=== PATIENT | female | born 1935 | race Caucasian/White ===

== ENCOUNTER 2017-11-16 18:13 | Emergency (ER) | payer MEDICARE, OTHER ==
[~2017-11-16] VITALS: Ht 160 cm; Wt 68.0 kg
--- NOTE | 2017-11-16 18:15 | NUR ---
BIB DTR FROM HOME DT CHEST PAIN, SHARP, 8/10, NON RADIATING SINCE YESTERDAY. PATIENT NOT IN DISTRESS. SKIN IS WARM TO TOUCH AND NON DIAPHORETIC. PATIENT IS AFEBRILE. VSS
--- NOTE | 2017-11-16 18:36 | NUR ---
IV ACCESSED ON RAC 20.
[2017-11-16 19:16] LABS: BASOPHILS # (AUTO) 0.1 /CMM (0.0-0.2); BASOPHILS % (AUTO) 0.6 % (0.0-2.0); HEMATOCRIT 39 % (33-45); HEMOGLOBIN 13.3 g/dL (11.5-14.8); LYMPHOCYTES # (AUTO) 2.6 /CMM (0.8-4.8); LYMPHOCYTES % (AUTO) 29.6 % (20.0-44.0); MEAN CORPUSCULAR HGB CONC 34 g/dl (31.0-36.0); MEAN CORPUSCULAR VOLUME 88 fL (82-100); MONOCYTES # (AUTO) 0.8 /CMM (0.1-1.30); MONOCYTES % (AUTO) 9.5 % (2.0-12.0); NEUTROPHILS % (AUTO) 58.3 % (43.0-81.0); PLATELET COUNT (AUTO) 301 /CMM (150-450); RDW COEFFICIENT OF VARIATION 12.2 (11.5-15.0); RED BLOOD CELL COUNT(AUTO) 4.43 MIL/uL (4.0-5.2); WHITE BLOOD COUNT (AUTO) 8.7 K/uL (4.3-11.0)
[2017-11-16] MEDS ORDERED: IOHEXOL-350 100 ML VIAL IV ONE (19:26)
[2017-11-16] MEDS ORDERED: CT SWABBABLE VALVE TRANS SET 1 EA INFUS.SET MC ONE (19:26)
[2017-11-16] MEDS ORDERED: IV NS 0.9% 250 ML IV ONE (19:26)
[2017-11-16 19:27] LABS: CALCIUM, SERUM 8.9 mg/dL (8.5-10.1); CARBON DIOXIDE 29 mmol/L (21-32); CHLORIDE 104 mmol/L (98-107); CREATININE 1.3 mg/dL (0.6-1.3); GLUCOSE 120 mg/dL (74-106); POTASSIUM 2.9 mmol/L (3.5-5.1); SODIUM SERUM 138 mmol/L (136-145); UREA NITROGEN, BLOOD 26 mg/dL (7-18)
[2017-11-16 19:28] LABS: INR 0.95 (0.85-1.15)
[2017-11-16 19:35] LABS: TROPONIN I < 0.017 ng/mL (0.00-0.056)
[2017-11-16 19:41] LABS: D-DIMER 0.39 mg/L(FEU (0.17-0.50)
[2017-11-16] MEDS ORDERED: IV NS 0.9% 500 ML BAG IV ONE (20:30)
[2017-11-16] MEDS ORDERED: POTASSIUM CHLORIDE 20 MEQ TAB.PRT.SR PO ONE ×2 (20:30→20:34)
[2017-11-16] MEDS ORDERED: POTASSIUM CHLORIDE 20 MEQ POWDER PACKET ONE (20:34)
--- NOTE | 2017-11-16 20:50 | NUR ---
CALLED PSYCHIATRIC FOR PANEL CALL AND DR GONZALES WAS PAGED.
--- NOTE | 2017-11-16 21:23 | NUR ---
PT IS ASSIGNED TO TELE RM#: [id number], DX: CHEST PAIN, AND ACCEPTING MD: DR GONZALES
[2017-11-16] MEDS ORDERED: ASPIRIN 81 MG TAB.CHEW ONE (21:29)
[2017-11-16] MEDS ORDERED: NITROGLYCERIN PACKET 1 GM PACKET ONE (21:29)
[2017-11-16] MEDS ORDERED: NITROGLYCERIN PACKET 1 GM PACKET TOP ONE (21:30)
[2017-11-16] MEDS ORDERED: ASPIRIN 81 MG TAB.CHEW PO ONE (21:30)
--- NOTE | 2017-11-16 21:37 | NUR ---
Pt REFUSED TO BE ADMITTED AND WANTS TO GO HOME. Pt SIGNED AMA FORM. LAST MED GIVEN WAS ASPIRIN 162MG PO, BUT Pt REFUSED THE NITRO-BID.
--- NOTE | 2017-11-16 21:39 | NUR ---
Patient refused admission and wished to go home; signed AMA form. Patient discharged to home in stable condition. Written and verbal after care instructions given. Patient & family verbalizes understanding of instruction. VS stable. Pt requested for copies of lab results, will see photoengraving helper tomorrow. Pt left on foot walking with steady gait. No s/s of acute distress or sob noted.
[2017-11-16 22:10] VITALS: BP 144/73
== END 2017-11-16 22:10 | disposition left against medical advice (07) ==
LOC: ER 18:16
DX: R07.89 Other chest pain (principal); E87.6 Hypokalemia; E86.0 Dehydration; I71.00 Dissection of unspecified site of aorta; I10 Essential (primary) hypertension; R94.31 Abnormal electrocardiogram [ECG] [EKG]
CPT/HCPCS: 36415; 71045; 71275; 80048; 84484; 85025; 85378; 85730; 87081; 93005; 99285; A4606; J7040; J7050; Q9967; Z7610